=== PATIENT | male | born 1955 | race Caucasian/White ===

== ENCOUNTER 2024-08-22 13:08 | Outpatient (CLI) | payer MEDICARE, BC | END 2024-08-22 13:09 | disposition home or self-care (01) | LOC: CSHMRI 13:08 | PROVIDERS: ATTEND Specialist | DX: M25.462 Effusion, left knee (principal); M25.562 Pain in left knee; S83.242A Other tear of medial meniscus, current injury, left knee, initial encounter; M23.322 Other meniscus derangements, posterior horn of medial meniscus, left knee; M94.262 Chondromalacia, left knee ==